=== PATIENT | male | born 1930 | race Caucasian/White ===

== ENCOUNTER 2017-01-17 10:46 | Emergency (ER) | payer MEDICARE ==
[~2017-01-17] VITALS: Ht 165.1 cm; Wt 77.3 kg
[~2017-01-17 10:46] MED LIST: FLOMAX0.4 MG PO; HCTZ PO; RAPAFLO8 MG PO
[2017-01-17 10:58] VITALS: TEMP 98
[2017-01-17] MEDS ORDERED: MICROZIDE12.5 MG PO (11:03)
[2017-01-17 11:24] LABS: BASO % 0.6 % (0.0-2.0); EOS # 0.1 (0.0-0.7); EOS % 0.8 % (0-4.0); GRAN % 70.6 % (42.2-75.2); HEMATOCRIT 41.2 % (42.0-52.0); HEMOGLOBIN 13.8 g/dl (13.5-18.0); LYMPH # 1.5 (1.2-3.4); LYMPH % 20.5 % (20.0-51.0); MEAN CELL VOLUME 89 fl (80.0-100.0); MEAN CORPUSCULAR HEMOGLOBIN 30 pg (27.0-31.0); MEAN CORPUSCULAR HGB CONC 34 g/dl (33.0-37.0); MEAN PLATELET VOLUME 11.5 fl (7.4-10.4); MONO # 0.5 (0.1-0.6); MONO % 6.9 % (1.7-9.3); PLATELET COUNT 154 K/mm3 (130-400); RED BLOOD COUNT 4.61 M/mm3 (4.20-5.60); WHITE BLOOD COUNT 7.1 K/mm3 (4.8-10.8)
[2017-01-17 11:34] LABS: ADJUSTED CALCIUM 9.3 mg/dL (8.4-10.2); ALANINE AMINOTRANSFERASE 21 U/L (21-72); ALBUMIN 4.3 gm/dL (3.5-5.0); ALKALINE PHOSPHATASE 72 U/L (50-136); ANION GAP 13 mmol/L (7-16); BILIRUBIN,TOTAL 0.9 mg/dL (0.0-1.0); BLOOD UREA NITROGEN 33 mg/dL (9-20); CALCIUM 9.5 mg/dL (8.4-10.2); CARBON DIOXIDE 27 mmol/L (22-30); CHLORIDE 104 mmol/L (98-107); CREATININE, serum 1.45 mg/dL (0.66-1.25); GLUCOSE 116 mg/dL (74-106); POTASSIUM 3.6 mmol/L (3.4-5.0); PROTHROMBIN TIME 11.1 SECONDS (9.7-12.8); SODIUM 144 mmol/L (137-145); TOTAL PROTEIN 7.5 gm/dL (6.4-8.2)
[2017-01-17 11:37] LABS: PARTIAL THROMBOPLASTIN TIME 23.5 SECONDS (26.0-37.0)
[2017-01-17 11:45] LABS: TROPONIN-I < 0.012 ng/mL (0.000-0.034)
[2017-01-17] MEDS ORDERED: ANTIVERT 25MG25 MG PO (12:48)
[2017-01-17 12:54] VITALS: BP 176/98; PULSE 64
== END 2017-01-17 13:03 | disposition home or self-care (01) ==
LOC: COL.ER 10:46
PROVIDERS: Emergency Medicine
DX: I10 Essential (primary) hypertension (principal); N28.9 Disorder of kidney and ureter, unspecified; R42 Dizziness and giddiness; Z87.891 Personal history of nicotine dependence; Z98.41 Cataract extraction status, right eye; Z98.890 Other specified postprocedural states
CPT/HCPCS: J7040